=== PATIENT | female | born 1990 | race Hispanic/Latino ===

== ENCOUNTER 2017-06-14 20:00 | Inpatient (IN) | payer BC ==
[2017-06-29 23:19] VITALS: BMI 32.4
[2017-06-29] MEDS: Lactated Ringer's 1,000 ML IV SCH (23:39)
[2017-06-30] MEDS ORDERED: Acetaminophen 500 MG TAB PO PRN (00:16)
[2017-06-30] MEDS ORDERED: Ondansetron HCl/PF 4 MG/2 ML Vial IVP PRN ×3 (00:16→15:11)
[2017-06-30] MEDS ORDERED: Promethazine HCl 25 MG/ML VIAL IM PRN ×2 (00:16→11:55)
[2017-06-30] MEDS ORDERED: Misoprostol 100 MCG TAB ONE (00:20)
[2017-06-30 00:27] LABS: Hematocrit 31.3 % (36.0-47.0); Mean Platelet Volume 10.5 fL (7.4-10.4); Red Blood Cell (RBC) Count 3.85 mill/uL (4.20-5.40); White Blood Cell (WBC) Count 10.2 thou/uL (4.8-10.8)
[2017-06-30] MEDS ORDERED: LR / Pitocin 40 units/1000 ml 40 UNITS/1,000 ML BAG IV SCH (00:30)
[2017-06-30] MEDS ORDERED: Carboprost 250 MCG/ML AMP IM PRN (00:30)
[2017-06-30] MEDS ORDERED: Misoprostol 200 MCG TAB RC PRN (00:30)
[2017-06-30] MEDS ORDERED: HYDROcodone/Acetaminophen 5/325 mg Tablet PO PRN ×4 (00:30→15:11)
[2017-06-30] MEDS ORDERED: Misoprostol 100 MCG TAB VAG SCH (00:30)
[2017-06-30] MEDS ORDERED: Methylergonovine 0.2 MG/ML VIAL IM PRN (00:30)
[2017-06-30] MEDS ORDERED: Lidocaine 1% (PF) 30 ML VIAL SC PRN (00:30)
[2017-06-30] MEDS ORDERED: LR 500 ML/Oxytocin 10 units 500 ML IV SCH ×2 (00:30)
[2017-06-30] MEDS ORDERED: Ibuprofen 800 MG TAB PO PRN (00:30)
[2017-06-30] MEDS ORDERED: Misoprostol 100 MCG TAB VAG PRN (00:30)
[2017-06-30] MEDS ORDERED: Fentanyl 4 mcg/Marc 0.1% Cadd 100 ML ONE (09:21)
--- NOTE | 2017-06-30 09:49 | PDOC.LDHP ---
Labor and Delivery H&P Chief complaint: scheduled induction HPI: 27yo at 40w0d by LMP here for elective IOL. On sono S>D, EFW 61% AC 96% . s/p cytotec overnight. Current gestational age (weeks): 40 Due date: 06/30/17 Dating criteria: last menstrual period Grav: 3 Para: 2 Current complications: none Abnormal US findings: No Current medications: pre-kaur vitamins, iron Previous surgical history: none Allergies/Adverse Reactions: Allergies Allergy/AdvReac Type Severity Reaction Status Date / Time No Known Drug Allergies Allergy Verified 06/29/17 23:04 Social history: none - Physical Exam Vital signs reviewed and normal: yes General: NAD Heart: RRR Lungs: CTAB Abdomen: gravid Extremeties: no edema FHT: category 1 [place] contractions every: q2min - Vaginal Exam cm dilated: 4 Effacement: 50% Station: -2 (arom clear) - OB Labs Blood type: O RH: positive Antibody Screen: negative HIV: negative RPR: negative HEPSAg: negative 1 hour GCT: positive 3 hour GTT: negative GBS: negative Rubella: immune - Assessment L&D Assessment: elective induction at term - Plan Plan: admit to L&D, labor augmentation if indicated, informed consent obtained, anesthesia consult for pain management
[2017-06-30] MEDS: Lactated Ringer's 1,000 ML IV SCH (10:19)
[2017-06-30] MEDS ORDERED: ePHEDrine/0.9% NaCl/PF SYRINGE 50 mg/10 ml SLOW IVP PRN (11:55)
[2017-06-30] MEDS ORDERED: Fentanyl 4 mcg/Marc 0.1% Cadd 100 ML in Premix Bag 1 BAG EPIDURAL SCH (11:55)
[2017-06-30] MEDS ORDERED: diphenhydrAMINE 50 MG/ML VIAL IVP PRN (11:55)
[2017-06-30] MEDS ORDERED: Eucerin (Mineral Oil/Petrolatum,White) 30 gm Jar TOP PRN (11:55)
[2017-06-30] MEDS ORDERED: Acetaminophen 325 MG TAB PO PRN (11:55)
[2017-06-30] MEDS ORDERED: Naloxone HCl 0.4 mg/ml Vial IV PRN ×2 (11:55)
[2017-06-30] MEDS ORDERED: Lactated Ringer's 500 ML IV PRN (11:55)
--- NOTE | 2017-06-30 13:06 | PDOC.OPDEL ---
OB Operative/Delivery Note Delivery Dr/Surgeon: Arlen Assist: n/a Pre-Delivery Diagnosis: elective induction Procedure/Post Delivery Dx: spontaneous vaginal delivery Weeks gestation: 40 Anesthesia: epidural - Findings A Sex: male Weight: 8 lb 5 oz - 1 min: 8 - 5 min: 9 - Additional Findings/Plan Placenta delivered: spontaneous Repaired Obstetrical Laceration: none Estimated blood loss: 200 Compilations/Other Findings: NC x 1, reduced at perineum Post delivery plan: routine recovery
[2017-06-30] MEDS ORDERED: Bisacodyl 10 MG SUPP PR PRN (15:11)
[2017-06-30] MEDS ORDERED: Lanolin Ointment 7 GM TUBE TOP PRN (15:11)
[2017-06-30] MEDS ORDERED: Preparation H Ointment 28 GM TUBE PR PRN (15:11)
[2017-06-30] MEDS ORDERED: diphenhydrAMINE 25 MG CAP PO PRN (15:11)
[2017-06-30] MEDS ORDERED: Milk Of Magnesia 30 ML UDCUP PO PRN (15:11)
[2017-06-30] MEDS ORDERED: Adacel (T-DAP) 0.5 ML VIAL IM ONE (15:11)
[2017-06-30] MEDS ORDERED: Ibuprofen 800 MG TAB PO SCH (15:11)
[2017-06-30] MEDS ORDERED: Benzocaine/Menthol 20-0.5% 60 ML CAN TOP PRN (15:11)
[2017-06-30] MEDS ORDERED: LR / Pitocin 40 units/1000 ml 1,000 ML IV SCH (15:11)
[2017-06-30] MEDS: Ferrous Sulfate 325 MG TAB PO SCH (19:01)
[2017-06-30] MEDS: Docusate Calcium (SURFAK) 240 MG CAP PO SCH (21:57)
[2017-06-30] MEDS: Ibuprofen 800 MG TAB PO SCH (21:57)
[2017-06-30] MEDS ORDERED: Bupivacaine HCl 0.5%/Epinephrine 1:200,000/PF 30 ml Vial ONE (22:31)
[2017-07-01 04:39] LABS: Hematocrit 28.6 % (36.0-47.0); Mean Platelet Volume 9.7 fL (7.4-10.4); Red Blood Cell (RBC) Count 3.52 mill/uL (4.20-5.40); White Blood Cell (WBC) Count 10.9 thou/uL (4.8-10.8)
[2017-07-01] MEDS: Ibuprofen 800 MG TAB PO SCH ×2 (06:03→13:40)
[2017-07-01] MEDS: Ferrous Sulfate 325 MG TAB PO SCH (08:06)
[2017-07-01] MEDS: Docusate Calcium (SURFAK) 240 MG CAP PO SCH (08:06)
[2017-07-01] MEDS ORDERED: Prenatal Vitamin 1 TAB PO SCH (09:00)
--- NOTE | 2017-07-01 10:33 | PDOC.PP ---
Post Progress Note Post Day #: 1 PO intake tolerated: yes Flatus: yes Ambulation: yes Vital Signs (12 hours) Temp Pulse Resp BP 07/01/17 08:00 97.8 F 68 20 07/01/17 07:52 97.8 F 68 20 111/63 07/01/17 06:06 98.6 F 72 16 07/01/17 00:56 98.6 F 72 16 121/60 Weight Weight 183 lb - Physical Examination General: NAD Cardiovascular: RRR Respiratory: non-labored breathing Abdominal: appropriately TTP Fundus firm & at: umb Extremities: negative homans (B) Skin: no rash Psychiatric: normal affect Result Diagrams: 07/01/17 04:13 Additional Labs: Post Labs Blood Type O POSITIVE 06/29/17 23:24 Hep Bs Antigen Non-Reactive S/CO (NonReactive) 06/29/17 23:24 (1) Vaginal delivery Code(s): O80 - ENCOUNTER FOR FULL-TERM UNCOMPLICATED DELIVERY Status: Acute - Assessment/Plan VSSAF Doing well, lochia < menses Rh pos RImm DC home FU 6 wk
[2017-07-01 17:10] VITALS: BP 130/70; TEMP 97.7
== END 2017-07-01 17:00 | disposition home or self-care (01) | DRG 775 ==
LOC: EDSTATUS 21:37 → L&D 06-29 22:40 → 3SW 06-30 15:35
PROVIDERS: ADMIT Student in an Organized Health Care Education/Training Program; ATTEND Student in an Organized Health Care Education/Training Program
PROC: 10E0XZZ Delivery of Products of Conception, External Approach (ICD-10-PCS; principal; 2017-06-30)
PROC: 3E0P7VZ Introduction of Hormone into Female Reproductive, Via Natural or Artificial Opening (ICD-10-PCS; 2017-06-30)
DX: O69.81X0 Labor and delivery complicated by cord around neck, without compression, not applicable or unspecified (principal); Z37.0 Single live birth; Z3A.40 40 weeks gestation of pregnancy
CPT/HCPCS: 36415; 85027; 87340; J0670; J7120